=== PATIENT | female | born 1985 | race Caucasian/White ===

== ENCOUNTER 2023-08-02 11:46 | Emergency (ER) | payer BC, OTHER ==
[~2023-08-02] VITALS: Ht 165.1 cm; Wt 71.5 kg
[2023-08-02 12:00] VITALS: BP 120/78; PULSE 88; RESP 16; TEMP 98.5; O2SAT 100
== END 2023-08-02 14:22 | disposition home or self-care (01) ==
LOC: ER 11:48
DX: S29.9XXA Unspecified injury of thorax, initial encounter (principal); V49.9XXA Car occupant (driver) (passenger) injured in unspecified traffic accident, initial encounter; Y93.89 Activity, other specified; Y92.89 Other specified places as the place of occurrence of the external cause; Y99.8 Other external cause status
CPT/HCPCS: 71045; 99283

== ENCOUNTER 2023-08-04 10:03 | Emergency (ER) | payer BC, OTHER ==
[~2023-08-04] VITALS: Ht 165.1 cm; Wt 70.8 kg
[2023-08-04 10:17] VITALS: TEMP 97.9
[2023-08-04 12:01] LABS: URINE HCG NEGATIVE (NEG)
[2023-08-04 13:19] VITALS: BP 103/73; PULSE 91; RESP 16; O2SAT 100
== END 2023-08-04 13:48 | disposition home or self-care (01) ==
LOC: ER 10:04
DX: R07.89 Other chest pain (principal); J90 Pleural effusion, not elsewhere classified; V89.2XXA Person injured in unspecified motor-vehicle accident, traffic, initial encounter; Y93.89 Activity, other specified; Y92.89 Other specified places as the place of occurrence of the external cause; Y99.8 Other external cause status
CPT/HCPCS: 71045; 71250; 81025; 99284

== ENCOUNTER 2023-08-18 09:15 | Emergency (ER) | payer BC ==
[~2023-08-18] VITALS: Ht 165.1 cm; Wt 70.0 kg
[2023-08-18 09:20] VITALS: TEMP 97
[2023-08-18 09:54] LABS: BASOPHILS % (AUTO) 0.5 % (0-1); EOSINOPHILS # (AUTO) 0.1 X10'3 (0-0.9); EOSINOPHILS % (AUTO) 2.2 % (0-6); HEMATOCRIT 39.5 % (35.0-45.0); HEMOGLOBIN 13.1 g/dl (12.0-16.0); LYMPHOCYTES # (AUTO) 2.1 X10'3 (1.1-4.8); LYMPHOCYTES % (AUTO) 33.5 % (21-51); MEAN CORPUSCULAR HEMOGLOBIN 30.4 PG (27.0-31.0); MEAN CORPUSCULAR HGB CONC 33.2 g/dL (33.0-36.5); MEAN CORPUSCULAR VOLUME 91.5 FL (78-98); MEAN PLATELET VOLUME 7.6 FL (7.4-10.4); MONOCYTES # (AUTO) 0.5 X10'3 (0-0.9); MONOCYTES % (AUTO) 8.5 % (2-12); NEUTROPHILS # (AUTO) 3.4 X10'3 (1.8-7.7); NEUTROPHILS % (AUTO) 55.3 % (42-75); PLATELET COUNT 351 X10'3 (140-440); RED BLOOD COUNT 4.32 X10'6 (4.20-5.60); RED CELL DISTRIBUTION WIDTH 13.4 % (11.5-14.5); WHITE BLOOD COUNT 6.2 X10'3 (4.5-11.0)
[2023-08-18 10:04] LABS: URINE HCG NEGATIVE (NEG)
[2023-08-18 10:10] LABS: ALANINE AMINOTRANSFERASE 22 U/L (12-78); ALBUMIN 3.8 G/DL (3.4-5.0); ALBUMIN/GLOBULIN RATIO 0.9 (1.1-1.5); ALKALINE PHOSPHATASE 65 IU/L (46-116); ANION GAP 13 (8-16); ASPARTATE AMINO TRANSFERASE 13 U/L (10-37); BILIRUBIN,TOTAL 0.3 MG/DL (0.1-1.0); BLOOD UREA NITROGEN 16 MG/DL (7-18); CALCIUM 9.2 MG/DL (8.5-10.1); CHLORIDE 105 MMOL/L (99-107); CREATININE 0.89 MG/DL (0.40-0.90); LIPASE 33 U/L (16-77); POTASSIUM 3.6 MMOL/L (3.5-5.1); SODIUM 142 MMOL/L (135-145); TOTAL CARBON DIOXIDE 24.4 MMOL/L (24-32); TOTAL PROTEIN 8.2 G/DL (6.4-8.2); eCRCL 76 ML/MIN; eGFR 71 ML/MIN
[2023-08-18] MEDS ORDERED: ketorolac trometh. 30mg/ml inj. IV ONE (10:10)
[2023-08-18 10:16] LABS: GLUCOSE 103 MG/DL (70-104)
[2023-08-18 10:18] LABS: BILIRUBIN,URINE NEGATIVE (Neg); CLARITY,URINE CLOUDY (Clear); COLOR,URINE YELLOW (Yellow); GLUCOSE, URINE NEGATIVE (Neg); KETONES,URINE TRACE mg/dl (Neg); LEUKOCYTE ESTERASE ,URINE SMALL (Neg); NITRITES, URINE NEGATIVE (Neg); OCCULT BLOOD,URINE TRACE-INTACT (Neg); PROTEIN,URINE NEGATIVE (Neg); UROBILINOGEN,URINE 0.2 E.U/dL (0.2-1.0)
[2023-08-18 10:23] LABS: UA COLLECTION TYPE VOIDED
[2023-08-18 10:25] LABS: MUCUS STRANDS MANY /LPF (Neg); SQUAMOUS EPITHELIAL CELL,UR FEW /LPF (FEW); WBC,URINE TNTC /HPF (0-4)
[2023-08-18 10:26] LABS: BACTERIA,URINE 1+ /HPF (Neg); RBC,URINE 0-2 /HPF (0-2)
[2023-08-18] MEDS: normal saline 1000ML IV soln IVB ONE (10:28)
[2023-08-18] MEDS: ketorolac tromethamine 15mg/ml inj. IV ONE (10:56)
[2023-08-18] MEDS: ondansetron/PF 4mg/2ml inj IV ONE (10:56)
[2023-08-18] MEDS: CefTRIAXone 2gm/D5W 50ml BAG 50 ML IV ONE (12:32)
[2023-08-18] MEDS ORDERED: CEFU250T95 PO (13:02)
[2023-08-18] MEDS ORDERED: ONDA4TAB12 PO (13:02)
[2023-08-18] MEDS ORDERED: FLO0.4C PO (13:09)
[2023-08-18 13:22] VITALS: BP 120/79; PULSE 80; RESP 16; O2SAT 100
== END 2023-08-18 13:24 | disposition home or self-care (01) ==
LOC: ER 09:16
DX: N39.0 Urinary tract infection, site not specified (principal); R19.7 Diarrhea, unspecified; R11.2 Nausea with vomiting, unspecified; Z79.899 Other long term (current) drug therapy; Z87.442 Personal history of urinary calculi
CPT/HCPCS: 36415; 74176; 80053; 81001; 81025; 83690; 85025; 87077; 87088; 87186; 96361; 96365; 96375; 99285; J0696; J1885; J2405; J7030